=== PATIENT | male | born 1950 | race Caucasian/White ===

== ENCOUNTER → 2019-09-24 | Outpatient (CLI) | payer OTHER ==
[~2019-09-24] MED LIST: ALEV220T22 PO; ASPI81TA85 PO; GNPTAB35 PO; RAMI1CAP26 PO; SYMB80INH INH; TGTSUS3 PO; TRIA50CA41 PO; mens multivitamin PO
== END ==
LOC: M LABSMTC 11:00
PROVIDERS: ATTEND Anesthesiology
DX: Z01.818 Encounter for other preprocedural examination (principal); Z11.59 Encounter for screening for other viral diseases
CPT/HCPCS: C9803; U0003

== ENCOUNTER 2019-09-27 08:05 | Day surgery (SDC) | payer OTHER ==
[~2019-09-27] VITALS: Ht 182.9 cm; Wt 129.3 kg
[~2019-09-27 08:05] MED LIST changes: +NS 1,000 ML IV ONE
[2019-09-27] MEDS ORDERED: propofoL 200 MG/20 ML VIAL As Ordered ONE (08:24)
[2019-09-27] MEDS ORDERED: LIDOCAINE 2% 100MG/5ML SDV (FOR ANES.) As Ordered ONE (08:24)
--- NOTE | 2019-09-27 09:36 | ROOR ---
Patient Name: Ace Nevarez Procedure Date: 09/27/2019 9:13 AM Date of : 1950 Age: 69 Room: [facility] Gender: Male Note Status: Finalized Procedure: Total Colonoscopy to Cecum + Biopsy Polypectomy Indications: Screening for colorectal malignant neoplasm Providers: Mason Dean MD Referring MD: Art[facility], Admin. Requesting Provider: Medicines: Monitored Anesthesia Care Complications: No immediate complications. Procedure: Pre-Anesthesia Assessment: - The heart rate, respiratory rate, oxygen saturations, blood pressure, adequacy of pulmonary ventilation, and response to care were monitored throughout the procedure. The Colonoscope was introduced through the anus and advanced to the cecum, identified by appendiceal orifice and ileocecal valve. The colonoscopy was performed without difficulty. The patient tolerated the procedure well. The quality of the bowel preparation was excellent. Findings: The perianal and digital rectal examinations were normal. Non-bleeding internal hemorrhoids were found during retroflexion. The hemorrhoids were small and Grade I (internal hemorrhoids that do not prolapse). Multiple small and large-mouthed diverticula were found in the recto-sigmoid colon, sigmoid colon and descending colon. Multiple sessile polyps were found in the cecum. The polyps were diminutive in size. These polyps were removed with a jumbo cold forceps. Resection and retrieval were complete. The exam was otherwise without abnormality on direct and retroflexion views. Impression: - Non-bleeding internal hemorrhoids. - Diverticulosis in the recto-sigmoid colon, in the sigmoid colon and in the descending colon. - Multiple diminutive polyps in the cecum, removed with a jumbo cold forceps. Resected and retrieved. - The examination was otherwise normal on direct and retroflexion views. - The exam was otherwise normal to the cecum. Recommendation: - Patient has a contact number available for emergencies. The signs and symptoms of potential delayed complications were discussed with the patient. Return to normal activities tomorrow. Written discharge instructions were provided to the patient. - High fiber diet. - Discharge patient to home. - Continue present medications. - Await pathology results. - Telephone GI clinic for pathology results in 1 week. - Return to referring physician. - Repeat colonoscopy in 10 years for surveillance based on pathology results. - The findings and recommendations were discussed with the patient. Mason Dean MD Mason Dean MD 09/27/2019 9:35:49 AM Electronically signed by Mason Dean MD Number of Addenda: 0 Note Initiated On: 09/27/2019 9:13 AM Estimated Blood Loss: Estimated blood loss: none.
[2019-09-27 09:50] VITALS: BP 145/88
== END 2019-09-27 10:14 | disposition home or self-care (01) ==
LOC: M OPP 08:05
PROVIDERS: ATTEND Internal Medicine Gastroenterology
DX: Z12.11 Encounter for screening for malignant neoplasm of colon (principal); D12.0 Benign neoplasm of cecum; K57.30 Diverticulosis of large intestine without perforation or abscess without bleeding; K64.0 First degree hemorrhoids; I10 Essential (primary) hypertension; J44.9 Chronic obstructive pulmonary disease, unspecified; Z79.82 Long term (current) use of aspirin; Z79.899 Other long term (current) drug therapy; Z87.891 Personal history of nicotine dependence

== ENCOUNTER → 2021-02-24 | Outpatient (CLI) | payer MEDICARE, OTHER ==
[~2021-02-24] MED LIST changes: +ACET-1439 PO; -ASPI81TA85 PO; +ASPI81TA86 PO; -NS 1,000 ML IV ONE; -TGTSUS3 PO
[2021-02-24 10:42] LABS: HEMATOCRIT 44.3 % (42.0-52.0); HEMOGLOBIN 14.7 g/dl (13.5-17.5); MEAN CORPUSCULAR HEMOGLOBIN 29.2 pg (27.0-33.0); MEAN CORPUSCULAR HGB CONC 33.2 g/dl (32.0-36.5); MEAN CORPUSCULAR VOLUME 88.1 fl (80.0-96.0); PLATELET COUNT, AUTOMATED 229 10^3/uL (150-450); RED BLOOD COUNT 5.03 10^6/uL (4.30-6.10); WHITE BLOOD COUNT 7.8 10^3/uL (4.0-10.0)
--- NOTE | 2021-02-24 10:46 | REP ---
INDICATION: LEFT KNEE OSTEOARTHRITIS-EKG AND LABS AFTER. COMPARISON: Multiple the latest 12/16/2018 TECHNIQUE: PA and lateral FINDINGS: The superior mediastinal structures are midline. The cardiac silhouette is unremarkable in size, shape, and position. The diaphragmatic surfaces of the lungs are regular, and the costophrenic angles are clear. The pulmonary bower are clear. The imaged osseous structures are intact. IMPRESSION: There is no acute cardiopulmonary disease. <Electronically signed by Ronan Smith > 02/24/21 1041
[2021-02-24 10:53] LABS: INR 0.98; PROTHROMBIN TIME 13.4 SECONDS (12.7-14.5)
[2021-02-24 11:07] LABS: ALBUMIN 3.8 GM/DL (3.2-5.2); ALT/SGPT 40 U/L (12-78); BILIRUBIN,TOTAL 0.5 MG/DL (0.2-1.0); BLOOD UREA NITROGEN 23 MG/DL (7-18); CARBON DIOXIDE LEVEL 22 MEQ/L (21-32); CHLORIDE LEVEL 115 MEQ/L (98-107); CREATININE FOR GFR 1.01 MG/DL (0.70-1.30); GLOMERULAR FILTRATION RATE > 60.0 (>42); GLUCOSE, FASTING 96 MG/DL (70-100); POTASSIUM SERUM 4.1 MEQ/L (3.5-5.1); SODIUM LEVEL 144 MEQ/L (136-145); TOTAL PROTEIN 6.9 GM/DL (6.4-8.2)
[2021-02-24 11:29] LABS: ERYTHROCYTE SEDIMENTATION RATE 5 mm/hr (0-20)
--- NOTE | 2021-02-25 21:16 | ECGEPIP ---
[facility] Test Date: 2021-02-24 Pat Name: JES GRANT Department: Room: - Gender: Male [place]: [place] : 1950 Requested By: Rosalie Hill Order Number: [id number] Reading MD: La Smith Measurements Intervals [place] Rate: 81 P: 53 [place]: 162 QRS: 72 QRSD: 92 T: 16 QT: 372 QTc: 432 Interpretive Statements Normal sinus rhythm No prior Electronically Signed on 02-25-2021 21:16:13 EDT by La Smith
== END ==
LOC: M RAD 09:07
PROVIDERS: ATTEND Orthopaedic Surgery
DX: Z01.818 Encounter for other preprocedural examination (principal); M17.12 Unilateral primary osteoarthritis, left knee

== ENCOUNTER 2021-04-22 17:25 | Emergency (ER) | payer MEDICARE, OTHER ==
[~2021-04-22] VITALS: Ht 182.9 cm; Wt 122.7 kg
[2021-04-22 18:54] LABS: BASO % 0.2 % (0.0-1.0); EOS % 0.1 % (0.0-3.0); HEMATOCRIT 42.7 % (42.0-52.0); HEMOGLOBIN 14.3 g/dl (13.5-17.5); LYMPH # 0.6 10^3/uL (1.5-5.0); LYMPH % 4.9 % (24.0-44.0); MEAN CORPUSCULAR HGB CONC 33.5 g/dl (32.0-36.5); MEAN CORPUSCULAR VOLUME 86.6 fl (80.0-96.0); MONO # 0.6 10^3/uL (0.0-0.8); MONO % 5.1 % (2.0-8.0); NEUTROPHILS % 89.4 % (36.0-66.0); PLATELET COUNT, AUTOMATED 304 10^3/uL (150-450); RED BLOOD COUNT 4.93 10^6/uL (4.30-6.10); WHITE BLOOD COUNT 12.3 10^3/uL (4.0-10.0)
[2021-04-22 19:27] LABS: ALBUMIN 4.5 GM/DL (3.2-5.2); BILIRUBIN,DIRECT 0.3 MG/DL (0.0-0.2); BILIRUBIN,TOTAL 0.7 MG/DL (0.2-1.0); TOTAL PROTEIN 7.3 GM/DL (6.4-8.2)
[2021-04-22] MEDS ORDERED: ONDANSETRON 4MG/2ML VIAL IV ONE (20:05)
[2021-04-22] MEDS ORDERED: KETOROLAC 30 MG/ML 1ML VIAL IV ONE (20:05)
[2021-04-22 20:11] LABS: CALCIUM LEVEL 9.7 MG/DL (8.8-10.2); CREATININE FOR GFR 1.31 MG/DL (0.70-1.30); GLOMERULAR FILTRATION RATE 57.4 (>42); POTASSIUM SERUM 4.7 MEQ/L (3.5-5.1)
[2021-04-22] MEDS ORDERED: NS 500 ML IV ONE (21:00)
--- NOTE | 2021-04-22 21:26 | REPVR ---
PROCEDURE INFORMATION: Exam: CT Abdomen And Pelvis Without Contrast Exam date and time: 04/22/2021 8:07 PM Age: 71 years old Clinical indication: Other: Left flank pain; R/O kidney stone TECHNIQUE: Imaging protocol: Computed tomography of the abdomen and pelvis without contrast. Radiation optimization: All CT scans at this facility use at least one of these dose optimization techniques: automated exposure control; mA and/or kV adjustment per patient size (includes targeted exams where dose is matched to clinical indication); or iterative reconstruction. COMPARISON: CR Chest, 2 view PA, Lat 02/24/2021 9:23 AM FINDINGS: Lungs: No suspicious mass or airspace process in the visualized lung bases. Liver: Two benign left lobe hepatic cysts are present measuring 17 and 10 mm, with simple fluid density. Gallbladder and bile ducts: Gallbladder is present and shows no evidence of gallstone. Pancreas: Noncontrast pancreas shows no obvious mass or adjacent fluid. Spleen: Noncontrast spleen shows no obvious focal deformity. Adrenal glands: Adrenal glands are normal in appearance. Kidneys and ureters: Right kidney demonstrates no stone or obstruction. Exophytic 10 mm right renal midpole cyst on image 70 with simple fluid density. Left kidney demonstrates perinephric stranding, nonobstructive calculi, a benign simple fluid density 4 cm cyst, and mild left hydroureteronephrosis secondary to a punctate intramural left UVJ stone, axial image 139 Stomach and bowel: Limited evaluation without enteric or IV contrast. No evidence of small bowel obstruction. Diverticular changes are present within the colon without inflammation. Appendix: Normal caliber appendix is identified, with no adjacent inflammation. Intraperitoneal space: No pneumoperitoneum. Vasculature: Atherosclerotic change present in the aorta, without aneurysm. Lymph nodes: No enlarged lymph nodes. Urinary bladder: Urinary bladder appears normal. Reproductive: Dystrophic prostate calcifications are noted. Bones/joints: Bony structures show no acute fracture or destructive process. Soft tissues: No concerning focal abnormality of the extra-abdominal and pelvic soft tissues. IMPRESSION: Mild left hydroureteronephrosis secondary to a punctate left UVJ stone measuring 2 mm. Nonobstructive left renal calculi are also present. COMMENTS: Consistent with the [employer]'s Incidental Findings Committee white paper (J Am Kun Radiol 2018): Any incidental renal lesion less than 1 cm or classified as too small to characterize, or any incidental cystic renal lesion characterized as simple-appearing, is likely benign. No follow-up imaging is recommended for these lesions per consensus recommendations based on imaging criteria. Electronically signed by: Good Singh On 04/22/2021 21:26:04 PM
[2021-04-22 22:44] VITALS: BP 162/84
[2021-04-22] MEDS ORDERED: TAMSULOSIN 0.4 MG CAP PO ONE (22:45)
[2021-04-22] MEDS ORDERED: CIPROFLOXACIN 500MG TABLET PO ONE (22:45)
[2021-04-22] MEDS ORDERED: NORCO 5/325MG TABLET (BULK FOR ED) PO ONE (22:45)
[2021-04-22] MEDS ORDERED: CIPR-249 PO (22:55)
[2021-04-22] MEDS ORDERED: HYDR-3713 PO (22:55)
[2021-04-22] MEDS ORDERED: FLOM0.4C39 PO (22:55)
== END 2021-04-22 23:30 | disposition home or self-care (01) ==
LOC: M ED 17:25
DX: N21.1 Calculus in urethra (principal); N20.0 Calculus of kidney; I10 Essential (primary) hypertension; E78.5 Hyperlipidemia, unspecified; Z87.442 Personal history of urinary calculi; Z87.891 Personal history of nicotine dependence; Z79.899 Other long term (current) drug therapy
CPT/HCPCS: 74176; 80048; 80076; 81001; 83690; 85025; 87086; 96361; 96374; 96375; 99284; J1885; J2405

== ENCOUNTER → 2021-12-05 | Outpatient (CLI) | payer OTHER ==
[~2021-12-05] MED LIST changes: +CIPR-249 PO; +FLOM0.4C39 PO; +HYDR-3713 PO
== END ==
LOC: M RAD 08:22
PROVIDERS: ATTEND Internal Medicine
DX: Z13.9 Encounter for screening, unspecified (principal)

== ENCOUNTER → 2023-12-14 | Outpatient (CLI) | payer OTHER ==
[~2023-12-14] MED LIST changes: +RAMI10CA64 PO; -RAMI1CAP26 PO
== END ==
LOC: M RAD 16:47
PROVIDERS: ATTEND Nurse Practitioner Family
DX: F10.11 Alcohol abuse, in remission (principal)

== ENCOUNTER 2024-11-06 11:23 | Day surgery (SDC) | payer OTHER ==
[~2024-11-06] VITALS: Ht 182.9 cm; Wt 124.3 kg
[~2024-11-06 11:23] MED LIST changes: -FLOM0.4C39 PO; +LR 1,000 ML IV SCH; +MIDAZOLAM INJ 2 MG/2 ML VIAL As Ordered ONE; +MULT-90 PO; +POTA10TA67 PO; +TAMS-18 PO
[2024-11-06] MEDS: TETRACAINE 0.5% OPHTH SOLN 4ML OD SCH (12:41)
[2024-11-06] MEDS: FLURBIPROFEN 0.03% OPHTH SOLN 2.5 ML OD SCH (12:41)
[2024-11-06] MEDS: PHENYLEPHRINE 10% OPHTH SOL 5ML OD SCH (12:41)
[2024-11-06] MEDS: CYCLOPENTOLATE 1% OPHTH SOLN 2 ML BTL OD SCH (12:41)
[2024-11-06] MEDS ORDERED: PHENYLEPHRINE 10% OPHTH SOL 5ML OD SCH (12:45)
[2024-11-06] MEDS: LIDOCAINE 1% SDV 5 ML VIAL As Ordered ONE (14:07)
[2024-11-06] MEDS: CEFUROXIME 1 MG/0.1 ML INTRACAMERAL INJ As Ordered ONE (14:07)
[2024-11-06 14:30] VITALS: BP 137/78; TEMP 97.2; O2SAT 96
== END 2024-11-06 14:42 | disposition home or self-care (01) ==
LOC: M SDC 11:23
PROVIDERS: ATTEND Ophthalmology
DX: H26.8 Other specified cataract (principal); H25.091 Other age-related incipient cataract, right eye; I10 Essential (primary) hypertension; M19.90 Unspecified osteoarthritis, unspecified site; Z79.899 Other long term (current) drug therapy; Z87.891 Personal history of nicotine dependence
CPT/HCPCS: 66984; J0697; J2250; J3010; V2787

== ENCOUNTER 2024-11-20 11:16 | Day surgery (SDC) | payer OTHER ==
[~2024-11-20] VITALS: Ht 182.9 cm; Wt 125.2 kg
[~2024-11-20 11:16] MED LIST changes: -MIDAZOLAM INJ 2 MG/2 ML VIAL As Ordered ONE; +PHENYLEPHRINE 2.5% OPHTH SOL 2ML OS SCH
[2024-11-20] MEDS: FLURBIPROFEN 0.03% OPHTH SOLN 2.5 ML OS SCH (12:56)
[2024-11-20] MEDS: PHENYLEPHRINE 10% OPHTH SOL 5ML OS SCH (12:56)
[2024-11-20] MEDS: CYCLOPENTOLATE 1% OPHTH SOLN 2 ML BTL OS SCH (12:56)
[2024-11-20] MEDS: TETRACAINE 0.5% OPHTH SOLN 4ML OS SCH (12:56)
[2024-11-20] MEDS ORDERED: MIDAZOLAM INJ 2 MG/2 ML VIAL As Ordered ONE (14:04)
[2024-11-20] MEDS: CEFUROXIME 1 MG/0.1 ML INTRACAMERAL INJ As Ordered ONE (14:25)
[2024-11-20] MEDS: LIDOCAINE 1% SDV 5 ML VIAL As Ordered ONE (14:25)
[2024-11-20 14:56] VITALS: BP 159/86; TEMP 97.3; O2SAT 96
== END 2024-11-20 15:15 | disposition home or self-care (01) ==
LOC: M SDC 11:16
PROVIDERS: ATTEND Ophthalmology
DX: H25.12 Age-related nuclear cataract, left eye (principal); I10 Essential (primary) hypertension; Z79.899 Other long term (current) drug therapy; Z98.41 Cataract extraction status, right eye; Z87.891 Personal history of nicotine dependence
CPT/HCPCS: 66984; J0697; J2250; J3010; V2787